=== PATIENT | male | born 1990 | race Caucasian/White ===

== ENCOUNTER → 2019-12-01 | Outpatient (CLI) | payer SELFPAY ==
--- NOTE | 2019-12-01 12:49 | KCIC ---
Multiple views of the left ribs as well as AP view of the chest were obtained. History: Reason: LEFT RIB PAIN / Spl. Instructions: Mid rib pain 1 wk. Ribs struck gate. / History: Comparison: none There is no fracture displaced rib fracture or acute bony injury seen. No pneumothorax is seen. Impression: Negative exam of the left ribs and chest. Electronically signed by: Gerald Taylor MD (12/01/2019 12:46 PM) [id number]
== END ==
LOC: KCIC 11:41
PROVIDERS: ATTEND Chiropractor
DX: R07.81 Pleurodynia (principal)
CPT/HCPCS: 71100